=== PATIENT | female | born 1965 | race Caucasian/White ===

== ENCOUNTER 2018-09-27 13:13 | Emergency (ER) | payer OTHER ==
[~2018-09-27] VITALS: Ht 162.6 cm; Wt 116.9 kg
[~2018-09-27 13:13] MED LIST: EXCEDRIN
[2018-09-27 13:36] VITALS: BP 133/83
[2018-09-27 14:29] LABS: BASOPHILS # (AUTO) 0.05 x10^3/uL (0-0.1); BASOPHILS % (AUTO) 1 % (0-1); EOSINOPHILS # (AUTO) 0.28 x10^3/uL (0-0.4); EOSINOPHILS % (AUTO) 5 % (1-7); LYMPHOCYTES # (AUTO) 1.47 x10^3/uL (1-3.4); LYMPHOCYTES % (AUTO) 24 % (22-44); MD NO; MEAN CORPUSCULAR HEMOGLOBIN 29.4 pg (27.0-34.8); MEAN CORPUSCULAR VOLUME 89.1 fL (80-100); MEAN PLATELET VOLUME 8.7 fL (7.4-10.4); MONOCYTES # (AUTO) 0.53 x10^3/uL (0.2-0.8); MONOCYTES % (AUTO) 9 % (2-9); NEUTROPHILS # (AUTO) 3.76 x10^3/uL (1.8-6.8); NEUTROPHILS % (AUTO) 62 % (42-75); PLATELET COUNT 327 x10^3/uL (130-400); RED BLOOD COUNT 4.33 x10^6/uL (3.82-5.3); RED CELL DISTRIBUTION WIDTH 15.1 % (9.6-15.2)
[2018-09-27 14:39] LABS: ALANINE AMINOTRANSFERASE 28 U/L (12-78); ALBUMIN 3.5 g/dL (3.4-5.0); ANION GAP 6 mmol/L (5-15); CHLORIDE 107 mmol/L (98-107); CREATININE 0.72 mg/dL (0.55-1.02)
[2018-09-27 14:41] LABS: ALKALINE PHOSPHATASE 82 U/L (45-117); BILIRUBIN,TOTAL 0.2 mg/dL (0.2-1.0); TOTAL PROTEIN 7.8 g/dL (6.4-8.2)
--- NOTE | 2018-09-27 15:00 | NUR ---
PT AMBULATORY TO ROOM FROM LOBBY. NAD. PT WALKED TO RESTROOM TO PROVIDE UA. PRIMARY RN, SEBASTIAN, MADE AWARE. PT HAS STEADY GAIT, FAMILY TO ACCOMPANY TO RESTROOM.
--- NOTE | 2018-09-27 15:14 | NUR ---
MARY ANN Salgado at bedside evaluating patient.
[2018-09-27] MEDS ORDERED: DIPHENHYDRAMINE 50 MG CAPSULE ONE (15:26)
[2018-09-27] MEDS ORDERED: DIPHENHYDRAMINE 25 MG CAPSULE PO ONE (15:30)
[2018-09-27] MEDS ORDERED: ALBUTEROL SULFATE 2.5 MG/3 ML NPPB ONE (15:30)
[2018-09-27 15:35] LABS: MICROSCOPIC NOT IND
[2018-09-27] MEDS ORDERED: ALBUTEROL SULFATE 2.5 MG/3 ML ONE (15:41)
[2018-09-27 15:51] LABS: CULTURE INDICATED? NO
--- NOTE | 2018-09-27 16:32 | NUR ---
Resting in [facility]. No needs.
[2018-09-27] MEDS ORDERED: ALBUTEROL/IPRATROPIUM 2.5MG/0.5MG, 3 ML NPPB ONE (17:00)
--- NOTE | 2018-09-27 17:27 | NUR ---
Patient/Caregiver given discharge instructions and they have confirmed that they understand the instructions. Patient ambulatory with steady gait.
== END 2018-09-27 17:30 | disposition home or self-care (01) ==
LOC: ED 15:12
DX: J20.8 Acute bronchitis due to other specified organisms (principal); F17.200 Nicotine dependence, unspecified, uncomplicated; G89.29 Other chronic pain; I25.2 Old myocardial infarction; J45.909 Unspecified asthma, uncomplicated
CPT/HCPCS: 36415; 71045; 80053; 81003; 85025; 94640; 99284; J7512; J7613; J7620; Q0163